=== PATIENT | male | born 1995 | race African-American/Black ===

== ENCOUNTER 2016-07-03 19:39 | Emergency (ER) | payer OTHER ==
[~2016-07-03] VITALS: Ht 188 cm; Wt 88.5 kg
[2016-07-03] MEDS ORDERED: DOXYCYCLINE HYCLATE 100 MG TAB As Ordered ONE (21:24)
[2016-07-03] MEDS ORDERED: PSEUDOEPHEDRINE 60 MG TAB PO ONE (21:30)
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
== END 2016-07-03 22:01 | disposition home or self-care (01) ==
LOC: M ED 19:39
DX: J01.90 Acute sinusitis, unspecified (principal); F41.9 Anxiety disorder, unspecified; F32.9 Major depressive disorder, single episode, unspecified; Z79.899 Other long term (current) drug therapy; Z88.0 Allergy status to penicillin

== ENCOUNTER 2016-07-26 18:51 | Emergency (ER) | payer OTHER ==
[2016-07-26] MEDS ORDERED: KETOROLAC 30 MG/ML VIAL (J1885) As Ordered ONE (21:32)
--- NOTE | 2016-07-26 23:46 | REP ---
Clinical: Deformity and swelling. Technique: AP, lateral, bilateral oblique and sunrise views of the left knee. Findings: Radiodense foreign body material is scattered within the soft tissues overlying the knee and tibia / fibula. No acute fracture or dislocation. No obvious effusion. No significant degenerative changes are appreciated. Impression: No acute fracture or dislocation. Radiodense foreign body material in the soft tissues of uncertain etiology. Signed by Jeevan Rascon MD 07/26/2016 11:37 P
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
== END 2016-07-27 00:04 | disposition home or self-care (01) ==
LOC: M ED 18:51
DX: M25.562 Pain in left knee (principal); F41.9 Anxiety disorder, unspecified; F32.9 Major depressive disorder, single episode, unspecified; Z88.0 Allergy status to penicillin
CPT/HCPCS: 73564; 96372; 99283; J1885

== ENCOUNTER 2016-11-15 14:16 | Emergency (ER) | payer OTHER ==
[~2016-11-15] VITALS: Ht 185.4 cm; Wt 93.0 kg
[2016-11-15] MEDS ORDERED: KETOROLAC 30 MG/ML VIAL (J1885) As Ordered ONE (14:33)
[2016-11-15] MEDS ORDERED: GABA-282 PO (14:33)
[2016-11-15] MEDS ORDERED: KETOROLAC 60 MG/2 ML VIAL (J1885) IM ONE (15:30)
[2016-11-15] MEDS ORDERED: NAPR500T PO (16:18)
[2016-11-15] MEDS ORDERED: VALI5TAB PO (16:18)
[2016-11-15 16:23] VITALS: BP 138/71
== END 2016-11-15 16:50 | disposition home or self-care (01) ==
LOC: M ED 14:47
DX: M54.5 Low back pain (principal); M62.830 Muscle spasm of back
CPT/HCPCS: 96372; 99283; J1885; J3360

== ENCOUNTER 2017-03-10 17:49 | Emergency (ER) | payer OTHER ==
[~2017-03-10] VITALS: Ht 188 cm; Wt 97.7 kg
[2017-03-10 17:49] VITALS: BP 141/72
[~2017-03-10 17:49] MED LIST: GABA-282 PO; NAPR500T PO; VALI5TAB PO
[2017-03-10] MEDS ORDERED: ALBU17IN INH (18:15)
[2017-03-10] MEDS ORDERED: DERMABOND TOPICAL SKIN ADHESIVE TOP ONE (19:00)
== END 2017-03-10 19:36 | disposition home or self-care (01) ==
LOC: M ED 17:49
DX: S01.81XA Laceration without foreign body of other part of head, initial encounter (principal); W01.198A Fall on same level from slipping, tripping and stumbling with subsequent striking against other object, initial encounter; Y92.002 Bathroom of unspecified non-institutional (private) residence as the place of occurrence of the external cause; Y93.01 Activity, walking, marching and hiking; Y99.9 Unspecified external cause status

== ENCOUNTER 2017-06-08 00:08 | Emergency (ER) | payer OTHER ==
[~2017-06-08] VITALS: Ht 188 cm; Wt 95.5 kg
[~2017-06-08 00:08] MED LIST changes: +ALBU17IN INH
[2017-06-08 00:09] VITALS: BP 134/62
[2017-06-08] MEDS ORDERED: GABA-279 PO (00:24)
[2017-06-08] MEDS ORDERED: OSEL75CA PO (01:55)
[2017-06-08] MEDS ORDERED: PRED20TA PO (01:56)
[2017-06-08] MEDS ORDERED: TESS100C PO (01:56)
[2017-06-08] MEDS ORDERED: OSELTAMIVIR PHOSPHATE 75 MG CAP (TAMIFLU) PO ONE (02:00)
[2017-06-08] MEDS ORDERED: BENZONATATE 100 MG CAP PO ONE (02:00)
== END 2017-06-08 02:19 | disposition home or self-care (01) ==
LOC: M ED 00:08
DX: J09.X2 Influenza due to identified novel influenza A virus with other respiratory manifestations (principal); J45.909 Unspecified asthma, uncomplicated; Z88.0 Allergy status to penicillin

== ENCOUNTER 2018-03-29 15:52 | Emergency (ER) | payer OTHER ==
[2018-03-29 16:31] LABS: BASO # 0.1 10^3/uL (0.0-0.2); BASO % 0.9 % (0.0-1.0); EOS # 0.2 10^3/uL (0.0-0.50); EOS % 3.5 % (0.0-3.0); HEMATOCRIT 48.5 % (42.0-52.0); HEMOGLOBIN 16.2 g/dl (13.5-17.5); IMMATURE GRANULOCYTE % 0.4 % (0-3.0); LYMPH # 2.2 10^3/uL (1.5-6.5); LYMPH % 39.2 % (24.0-44.0); MEAN CORPUSCULAR HEMOGLOBIN 27.6 pg (27.0-33.0); MEAN CORPUSCULAR HGB CONC 33.4 g/dl (32.0-36.5); MEAN CORPUSCULAR VOLUME 82.8 fl (80.0-96.0); MONO # 0.3 10^3/uL (0.0-0.8); MONO % 5.5 % (0.0-5.0); NEUTROPHILS # 2.9 10^3/uL (1.8-7.7); NEUTROPHILS % 50.5 % (36.0-66.0); PLATELET COUNT, AUTOMATED 252 10^3/uL (150-450); RED BLOOD COUNT 5.86 10^6/uL (4.30-6.10); RED CELL DISTRIBUTION WIDTH 12.1 % (11.5-14.5); WHITE BLOOD COUNT 5.6 10^3/uL (4.0-10.0)
[2018-03-29 16:33] LABS: KETONE, URINE AUTO RFX NEGATIVE (NEGATIVE); LEUKOCYTE ESTERASE UR AUTO RFX NEGATIVE (NEGATIVE); NITRITE, URINE AUTO RFX NEGATIVE (NEGATIVE); RBC, URINE AUTO RFX 0 /HPF (0-3); SPECIFIC GRAVITY UR AUTO RFX 1.011 (1.002-1.035); SQUAM EPITHELIAL CELL UR AURFX 0 /HPF (0-6); WBC, URINE AUTO RFX 0 /HPF (0-3)
[2018-03-29 17:08] LABS: ANION GAP 7 MEQ/L (8-16); BLOOD UREA NITROGEN 13 MG/DL (7-18); CALCIUM LEVEL 9.2 MG/DL (8.5-10.1); CARBON DIOXIDE LEVEL 29 MEQ/L (21-32); CHLORIDE LEVEL 105 MEQ/L (98-107); CREATININE FOR GFR 1.07 MG/DL (0.70-1.30); GLOMERULAR FILTRATION RATE > 60.0 (>60); GLUCOSE, FASTING 64 MG/DL (70-100); POTASSIUM SERUM 5.1 MEQ/L (3.5-5.1); SODIUM LEVEL 141 MEQ/L (136-145)
[2018-03-29] MEDS: KETOROLAC 60 MG/2 ML VIAL (J1885) IM (18:08)
[2018-03-29 18:29] LABS: ALBUMIN 4.2 GM/DL (3.2-5.2); ALBUMIN/GLOBULIN RATIO 1.14 (1.00-1.93); ALKALINE PHOSPHATASE 54 U/L (45-117); ALT/SGPT 24 U/L (12-78); AST/SGOT 28 U/L (7-37); BILIRUBIN,DIRECT 0.1 MG/DL (0.0-0.2); BILIRUBIN,TOTAL 0.7 MG/DL (0.2-1.0); TOTAL PROTEIN 7.9 GM/DL (6.4-8.2)
== END 2018-03-29 19:18 | disposition home or self-care (01) ==
LOC: M ED 15:52
DX: R10.11 Right upper quadrant pain (principal); R10.31 Right lower quadrant pain; T18.9XXA Foreign body of alimentary tract, part unspecified, initial encounter; Y92.89 Other specified places as the place of occurrence of the external cause; J45.909 Unspecified asthma, uncomplicated; Z88.0 Allergy status to penicillin
CPT/HCPCS: J1885